=== PATIENT | female | born 1970 | race Caucasian/White ===

== ENCOUNTER 2019-01-03 11:58 | Day surgery (SDC) | payer BC ==
[~2019-01-03 11:58] MED LIST: Bacitracin Oint 1 GM U/D Packet ONE; Bupivacaine 0.5% 50 ML MDV ONE; Lidocaine 2% 20 ML MDV ONE
[2019-01-03] MEDS ORDERED: ceFAZolin 2 GM in Sodium Chloride 0.9% 50 ML IV ONE (12:30)
[2019-01-03] MEDS ORDERED: ceFAZolin 2 GM in Premix Bag 1 BAG IV ONE (12:30)
[2019-01-03] MEDS ORDERED: Lactated Ringers 1,000 ML IV SCH (12:30)
[2019-01-03] MEDS ORDERED: Midazolam 1 MG/ML 2 ML SDV ONE ×2 (12:45→14:06)
[2019-01-03] MEDS ORDERED: Propofol 200 MG/20 ML SDV ONE ×3 (12:45→14:40)
[2019-01-03] MEDS ORDERED: fentaNYL 100 MCG/2 ML SDV ONE (12:45)
--- NOTE | 2019-01-03 16:00 | OR ---
DATE OF PROCEDURE: 01/03/2019 SURGEON: Case Hagan DPM YOU[employer] DEVELOPMENT PROFESSIONAL: None. PREOPERATIVE DIAGNOSIS: Hallux rigidus, right great toe. POSTOPERATIVE DIAGNOSIS: Hallux rigidus, right great toe. PROCEDURE: Arthrodesis of the right first metatarsophalangeal joint. ANESTHESIA: Local with IV sedation. HEMOSTASIS: Obtained with an ankle tourniquet on the right ankle at 250 mmHg. ESTIMATED BLOOD LOSS: 5 mL. MATERIALS: One right-sided first MPJ fusion plate was used and 4 3.0 mm locking screws, one 3.0 mm nonlocking screw, one 3.0 mm cannulated screw. INJECTABLES: 1:1 mixture of lidocaine 1% plain and Marcaine 0.5% plain was injected a total 20 mL preoperatively. PATHOLOGY: None. CONDITION: Stable. INDICATIONS FOR SURGERY: Painful arthritic first metatarsophalangeal joint that was unresponsive to conservative measures. PROCEDURE IN DETAIL: The patient was brought into the operating room and placed the operating table in a supine position. Following IV sedation, anesthesia was obtained with a total of 20 mL of 1:1 mixture of lidocaine 2% plain and Marcaine 0.5% plain. The right foot was scrubbed, prepped, and draped in the usual aseptic manner and raised to 60 degrees for hemostasis and exsanguinated using Esmarch bandage. Tourniquet was inflated. Foot was lowered to table. Skin incision was made on the dorsomedial aspect of the right first metatarsophalangeal joint. Incisions were deepened through subcutaneous tissues with care taken to identify and retract all vital neurovascular structures. Following subcutaneous dissection, a T-type incision was made into the first metatarsophalangeal joint of the right foot and the capsule was carefully dissected off the first metatarsal head and the base of the proximal phalanx. Sagittal saw was used to remove the medial eminence on the medial side of the first metatarsal head and also the dorsal bony eminence of the first metatarsal head. Then the Arthrex reamers were used to ream the first metatarsal head and the base of the proximal phalanx down to healthy bone and then a 0.062 K-wire was used to fenestrate the first metatarsal head and the base of the proximal phalanx. They were reduced into an anatomic position and fixated provisionally with a K-wire and then the compression screw was placed across the arthrodesis site and the position was checked both visually and fluoroscopically and found to be anatomic. At this time, the plate was placed over the dorsal aspect of the first metatarsal head and the base of proximal phalanx and was fixated first distally with 2 locking screws and then the eccentrically drilled screw was placed in the first metatarsal head and then the remaining 2 locking screws were placed. The incision was flushed out with copious amounts of sterile saline and then the capsule was closed with 3-0 Vicryl, subcutaneous closure with 3-0 Vicryl, and skin closure with 3-0 nylon in a horizontal mattress configuration and also 2 simple stitches were used. The incision was then dressed with Xeroform, 4x4s, Kerlix, and Coban. The patient was returned to recovery room with vital signs stable and vascular status intact to both feet. The patient was told to rest, ice, and elevate the right foot and to go to the emergency room immediately if she has any nausea, vomiting, fever, chills, chest pain, calf pain, difficulty breathing; keep dressings clean, dry, and intact; and return to clinic in 1 week, at which time she will be re-evaluated; maintain strict nonweightbearing on the right foot. The patient to follow up in 1 week. Case Hagan DPM /[id number]
[2019-01-03 16:09] VITALS: BP 109/73; PULSE 94
== END 2019-01-03 16:30 | disposition home or self-care (01) ==
LOC: JP.SDS 11:58
PROVIDERS: ATTEND Podiatrist Foot & Ankle Surgery
DX: M20.21 Hallux rigidus, right foot (principal); M19.071 Primary osteoarthritis, right ankle and foot; K21.9 Gastro-esophageal reflux disease without esophagitis; F32.9 Major depressive disorder, single episode, unspecified; G89.4 Chronic pain syndrome; Z88.6 Allergy status to analgesic agent; Z79.899 Other long term (current) drug therapy
CPT/HCPCS: 28291; 81025; C1713; C1776; J0690; J2001; J2250; J2704; J3010; J3490; J7050; J7120

== ENCOUNTER 2021-08-27 20:13 | Emergency (ER) | payer BC, OTHER ==
[2021-08-27 20:29] VITALS: BP 150/92; PULSE 109
[2021-08-27] MEDS ORDERED: Ondansetron 4 MG Tab.DIS PO ONE (20:50)
== END 2021-08-27 21:55 | disposition home or self-care (01) ==
LOC: JP.ED 20:13
DX: N30.00 Acute cystitis without hematuria (principal); E86.0 Dehydration; R11.2 Nausea with vomiting, unspecified; K21.9 Gastro-esophageal reflux disease without esophagitis; M19.90 Unspecified osteoarthritis, unspecified site; E66.9 Obesity, unspecified; Z68.29 Body mass index [BMI] 29.0-29.9, adult; Z88.8 Allergy status to other drugs, medicaments and biological substances; Z79.899 Other long term (current) drug therapy
CPT/HCPCS: 36415; 80053; 81001; 83605; 83690; 85025; 87086; 99283; 99284; Q0162

== ENCOUNTER 2023-01-16 08:54 | Day surgery (SDC) | payer OTHER ==
[2023-01-16] MEDS ORDERED: Lactated Ringers 1,000 ML IV SCH (09:30)
[2023-01-16] MEDS ORDERED: fentaNYL 50 MCG/ML SDV ONE (11:19)
[2023-01-16] MEDS ORDERED: Propofol 200 MG/20 ML SDV ONE ×2 (11:19→12:01)
[2023-01-16] MEDS ORDERED: Midazolam 1 MG/ML 2 ML SDV ONE (11:19)
[2023-01-16 13:05] VITALS: BP 123/58; PULSE 88
== END 2023-01-16 13:10 | disposition home or self-care (01) ==
LOC: JP.SDS 08:54
PROVIDERS: ATTEND Student in an Organized Health Care Education/Training Program
DX: Z12.11 Encounter for screening for malignant neoplasm of colon (principal); K63.5 Polyp of colon; K57.30 Diverticulosis of large intestine without perforation or abscess without bleeding; K21.9 Gastro-esophageal reflux disease without esophagitis; F32.A Depression, unspecified; G89.29 Other chronic pain; Z88.6 Allergy status to analgesic agent
CPT/HCPCS: 45380; 88305; J2250; J2704; J3010; J7120